=== PATIENT | female | born 1940 | race Two or more races ===

== ENCOUNTER → 2017-05-20 | Outpatient (CLI) | payer OTHER | END | disposition home or self-care (01) | LOC: RAD 14:50 | DX: R06.00 Dyspnea, unspecified (principal); J98.01 Acute bronchospasm; J45.30 Mild persistent asthma, uncomplicated; I10 Essential (primary) hypertension; E11.29 Type 2 diabetes mellitus with other diabetic kidney complication; K21.9 Gastro-esophageal reflux disease without esophagitis; J32.8 Other chronic sinusitis ==

== ENCOUNTER 2017-10-17 15:49 | Outpatient (CLI) | payer OTHER | END 2017-10-17 16:01 | disposition home or self-care (01) | LOC: RAD 15:49 | DX: M79.671 Pain in right foot (principal); M79.672 Pain in left foot ==

== ENCOUNTER 2017-11-04 12:36 | Outpatient (CLI) | payer OTHER | END 2017-11-04 13:00 | disposition home or self-care (01) | LOC: NUCLEAR 12:36 | DX: M81.0 Age-related osteoporosis without current pathological fracture (principal); Z13.820 Encounter for screening for osteoporosis ==

== ENCOUNTER 2017-11-06 11:17 | Outpatient (CLI) | payer OTHER | END 2017-11-06 17:00 | disposition home or self-care (01) | LOC: RAD 11:17 | DX: M17.0 Bilateral primary osteoarthritis of knee (principal); M11.262 Other chondrocalcinosis, left knee; M11.261 Other chondrocalcinosis, right knee ==

== ENCOUNTER 2018-07-08 14:23 | Outpatient (CLI) | payer OTHER | END 2018-07-08 15:16 | disposition home or self-care (01) | LOC: RAD 14:23 | DX: I70.0 Atherosclerosis of aorta (principal) ==

== ENCOUNTER 2018-10-17 15:59 | Outpatient (CLI) | payer OTHER | END 2018-10-17 16:06 | disposition home or self-care (01) | LOC: RAD 15:59 | DX: M19.071 Primary osteoarthritis, right ankle and foot (principal); M19.072 Primary osteoarthritis, left ankle and foot ==

== ENCOUNTER 2022-12-07 13:41 | Outpatient (CLI) | payer OTHER | END 2022-12-07 13:47 | disposition home or self-care (01) | LOC: TOM 13:41 | PROVIDERS: ATTEND Specialist | DX: R10.9 Unspecified abdominal pain (principal); N39.3 Stress incontinence (female) (male) ==

== ENCOUNTER 2024-02-25 15:37 | Emergency (ER) | payer OTHER ==
[~2024-02-25] VITALS: Ht 154.9 cm; Wt 59.0 kg
[2024-02-25] MEDS ORDERED: LEVOTHYROXINE50 MC1 PO (15:44)
[2024-02-25] MEDS ORDERED: RESTORIL7.5 MG PO (15:44)
[2024-02-25] MEDS ORDERED: ROSUVASTATIN CA40 MG PO (15:44)
[2024-02-25] MEDS ORDERED: TIROSINT13 MCG PO (15:44)
[2024-02-25] MEDS ORDERED: GLUMETZA500 MG PO (15:45)
[2024-02-25] MEDS ORDERED: IRBESARTAN300 MG PO (15:45)
[2024-02-25] MEDS ORDERED: GRALISE600 MG PO (15:47)
[2024-02-25] MEDS ORDERED: FAMOTIDINE/PF 20 MG/2 ML VIAL IV ONE (16:15)
[2024-02-25 17:26] LABS: HEMATOCRIT 28.1 % (36.0-45.00); HEMOGLOBIN 9.3 g/dL (12.0-15.00); MEAN CELL VOLUME 84.9 fL (80.00-100.00); PLATELET COUNT 233 K/uL (150-450); RED BLOOD COUNT 3.31 M/uL (4.00-6.00); RED CELL DISTRIBUTION WIDTH 15.9 % (11.5-14.5)
[2024-02-25 17:43] LABS: INR 1.08; PARTIAL THROMBOPLASTIN TIME 28.8 SECONDS (22.0-34.0); PROTHROMBIN TIME 11.7 SECONDS (9.0-11.5)
[2024-02-25 17:50] LABS: ALBUMIN 3.8 gm/dL (3.4-5.0); BILIRUBIN TOTAL 0.4 mg/dL (0.3-1.2); CREATININE SERUM 1.74 mg/dL (0.55-1.02); GFR 28.01; GLOBULINA 3.6 G/DL (2.4-3.5); POTASSIUM 4.39 mEq/L (3.5-5.1); TOTAL PROTEIN 7.4 gm/dL (6.4-8.2)
[2024-02-25 18:35] LABS: URINE APPEARANCE Cloudy; URINE BILIRRUBIN Negative (NEGATIVE); URINE BLOOD Large; URINE COLOR Orange; URINE GLUCOSE Negative (NEGATIVE); URINE KETONE Negative (NEGATIVE); URINE LEUKOCYTE Moderate; URINE NITRATE Negative; URINE PROTEIN 30 (NEGATIVE); URINE UROBILINOGEN 0.2 E.U./dl
[2024-02-25 18:36] LABS: URINE BACTERIA 367.8 uL (0.0-1933); URINE RBC 42.9 uL (0.0-20.8); URINE WBC 511.8 uL (0.0-23.2)
[2024-02-25 18:48] LABS: URINE EPITHELIAL CELLS 1.2 uL (0.0-38.8)
[2024-02-25] MEDS ORDERED: CIPRO500 MG PO (19:40)
[2024-02-25] MEDS ORDERED: CIPROFLOXACIN IN 5 % DEXTROSE 400 MG/200 ML PIGGYBAG IV ONE (19:45)
== END 2024-02-25 21:22 | disposition home or self-care (01) ==
LOC: ER 15:39
PROVIDERS: Nurse Practitioner Family
DX: N39.0 Urinary tract infection, site not specified (principal); R31.9 Hematuria, unspecified; R30.0 Dysuria; R12 Heartburn; K80.20 Calculus of gallbladder without cholecystitis without obstruction; K57.30 Diverticulosis of large intestine without perforation or abscess without bleeding; Z88.0 Allergy status to penicillin
CPT/HCPCS: 36415; 74176; 93005; 96365; 99284; J0744; J3490

== ENCOUNTER 2024-07-20 11:39 | Outpatient (CLI) | payer OTHER ==
[~2024-07-20 11:39] MED LIST: CIPRO500 MG PO; GLUMETZA500 MG PO; GRALISE600 MG PO; IRBESARTAN300 MG PO; LEVOTHYROXINE50 MC1 PO; RESTORIL7.5 MG PO; ROSUVASTATIN CA40 MG PO; TIROSINT13 MCG PO
== END 2024-07-20 11:50 | disposition home or self-care (01) ==
LOC: SONOGRAMA 11:39
DX: M75.112 Incomplete rotator cuff tear or rupture of left shoulder, not specified as traumatic (principal)